=== PATIENT | male | born 1990 | race Caucasian/White ===

== ENCOUNTER 2020-11-03 23:30 | Emergency (ER) | payer OTHER, SELFPAY ==
--- NOTE | ~2020-11-03 | XR_ITS ---
EXAMINATION: XR HAND, RIGHT XR ANKLE, RIGHT CLINICAL INFORMATION: Right hand pain. Right ankle pain. COMPARISON: None TECHNIQUE: 3 views of the right hand. 3 views of the right ankle. FINDINGS: Right hand: No fracture or dislocation. There is soft tissue swelling of the third digit surrounding the proximal interphalangeal joint. No radiopaque foreign body. Right ankle: No fracture or dislocation. The ankle mortise is congruent. The soft tissues are unremarkable. No ankle joint effusion. XR/XR ankle RT min 3V IMPRESSION: 1. No fracture or malalignment of the right hand. Soft tissue swelling surrounds the third digit proximal interphalangeal joint. 2. No fracture or malalignment of the right ankle.
--- NOTE | ~2020-11-03 | XR_ITS ---
EXAMINATION: XR HAND, RIGHT XR ANKLE, RIGHT CLINICAL INFORMATION: Right hand pain. Right ankle pain. COMPARISON: None TECHNIQUE: 3 views of the right hand. 3 views of the right ankle. FINDINGS: Right hand: No fracture or dislocation. There is soft tissue swelling of the third digit surrounding the proximal interphalangeal joint. No radiopaque foreign body. Right ankle: No fracture or dislocation. The ankle mortise is congruent. The soft tissues are unremarkable. No ankle joint effusion. XR/XR hand RT min 3V IMPRESSION: 1. No fracture or malalignment of the right hand. Soft tissue swelling surrounds the third digit proximal interphalangeal joint. 2. No fracture or malalignment of the right ankle.
[2020-11-03 23:42] VITALS: BP 122/74; PULSE 88; RESP 18; TEMP 36.1; O2SAT 96; BMI 26.6
--- NOTE | 2020-11-04 00:29 | PC.NURSE ---
PT IS CONSTANTLY GETTING UP AND REQUESTING TO GO HOME.
--- NOTE | 2020-11-04 00:44 | PC.NURSE ---
RIGHT HAND IS UNDRESSED AND CLEANED UP. PT HAS SMALL CUTS TO TOP OF RIGHT HAND WITH SLIGHT ACTIVE BLEEDING TO AREA. PT TRYING TO CALL [facility] WITHOUT SUCCESS. PT IS CONSTANTLY TALKING AND TRYING TO GET UP AND WALK AROUND. PT TOLD SEVERAL TIMES TO STAY SITTING. WILL CONTINUE TO MONITOR PT.
--- NOTE | 2020-11-04 01:01 | PC.NURSE ---
PT RETURNS TO [facility] [place]. WILL CONTINUE TO MONITOR PT.
[2020-11-04 02:00] VITALS: BP 118/76; PULSE 81; RESP 16; O2SAT 98
--- NOTE | 2020-11-04 02:02 | ED.ALCOHOL ---
HPI - Alcohol General Chief Complaint: ETOH/Substance Use Stated Complaint: Etoh Time Seen by Provider: 11/04/20 00:58 Source: patient Mode of arrival: ambulatory History of Present Illness HPI narrative: 30-year-old male presents via EMS and noted to be intoxicated and was upset due to a break-up with his girlfriend and had punched a wall with his right hand. Patient states that he also kicked the wall and denies any difficulty with opening and closing his hand. Related Data Allergies Allergy/AdvReac Type Severity Reaction Status Date / Time No Known Allergies Allergy Unverified 12/08/19 16:45 Review of Systems Review of Systems: Pertinent positives and negatives as stated in HPI 10 point review systems is otherwise negative. [facility] Past Medical History Source: nursing notes reviewed Medical History No known health problems Social History Social History Advance Directives: No Advance Directives Information Provided: No Physical Exam Vital Signs: Vital Signs: Last Vital Signs Temp 97 F 11/03/20 23:42 Pulse 80 11/04/20 04:00 Resp 16 11/04/20 04:00 BP 120/78 11/04/20 04:00 Pulse Ox 98 11/04/20 04:00 Body Mass Index 26.6 VITAL SIGNS: Reviewed. GENERAL: Well developed, well nourished, in no acute distress. HEAD: Normocephalic/atraumatic EYES: PERRLA, EOMI OROPHARYNX: no oral lesions noted, posterior pharynx cleaR LUNGS: Normal breath sounds. No adventitious sounds or accessory muscle use. SpO2<96> CARDIOVASCULAR: Regular rate and rhythm without noted murmurs ABDOMEN: Soft, non-tender, non-distended with bowel sounds. 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 CAPILLARY REFILL LESS THAN 3 SECONDS NEUROLOGIC: Alert and oriented x 4. Course Course Course Narrative: 30-YEAR-OLD MALE WITH HISTORY AND CLINICAL PRESENTATION CONSISTENT WITH alcohol intoxication as well as abrasions to the right hand and on review of all x-rays there are no acute findings to support fracture or dislocation. BAL-153 and patient will be discharged at 6:00 a.m. after clinical evaluation for sobriety. On re-evaluation patient is clinically sober and stable for discharge to home. MDM - Alcohol Lab Data Labs: Lab Results 11/04/20 Range/Units 02:08 Ethyl Alcohol 153 mg/dL Discharge Plan Discharge Clinical Impression: Alcoholic intoxication, Alcohol dependence, Abrasion of hand, right Patient Disposition: Home, Self-Care Instructions: Alcohol Intoxication (ED), Abrasion (ED), Alcohol Dependence (ED) Additional Instructions: Follow-up with your primary care provider in the next 2-3 days for re-evaluation. Return to the ER for acute worsening of symptoms. Referrals: Physician,Unknown [Primary Care Provider] - 2 days
[2020-11-04 02:58] LABS: Ethanol 153 mg/dL
[2020-11-04 04:00] VITALS: BP 120/78; PULSE 80; RESP 16; O2SAT 98
--- NOTE | 2020-11-04 06:24 | PC.NURSE ---
[facility] IS CALLING [facility]. PT IN NAD AND REQUESTING TO LEAVE. PT AWAITING FOR D/C DISPO.
== END 2020-11-04 07:15 | disposition home or self-care (01) ==
PROVIDERS: Emergency Provider Student in an Organized Health Care Education/Training Program
DX: S60.511A Abrasion of right hand, initial encounter (principal); F10.229 Alcohol dependence with intoxication, unspecified; Y90.6 Blood alcohol level of 120-199 mg/100 ml; M25.571 Pain in right ankle and joints of right foot; M79.641 Pain in right hand; Y29.XXXA Contact with blunt object, undetermined intent, initial encounter; Y93.9 Activity, unspecified; Y92.9 Unspecified place or not applicable; Y99.9 Unspecified external cause status
CPT/HCPCS: 36415; 73130; 73610; 82077; 99283

== ENCOUNTER 2021-08-10 03:05 | Emergency (ER) | payer OTHER, SELFPAY ==
[2021-08-10 03:11] VITALS: BP 134/84; BP 142/96; PULSE 92; PULSE 98; RESP 18; O2SAT 97; O2SAT 99; BMI 25.0
--- NOTE | 2021-08-10 03:17 | ED.PSYCH ---
HPI - Psych General Chief Complaint: ETOH/Substance Use Stated Complaint: pcp Time Seen by Provider: 08/10/21 03:17 Source: patient Mode of arrival: EMS Limitations: other (drug use) History of Present Illness HPI Narrative: walking around [place] trying to find his BMX bike wants to have a baby with someone complaint: substance abuse Onset (ago): hour(s) Duration: constant History of same: Yes Relieving factors: none Exacerbating factors: drug use Context: recent drug abuse Associated psychiatric symptoms: none Associated symptoms: denies other symptoms Treatments prior to arrival: none Related Data Allergies Allergy/AdvReac Type Severity Reaction Status Date / Time No Known Allergies Allergy Unverified 12/08/19 16:45 Review of Systems Review of Systems: Constitutional : No Fever, No Chills ENT/Mouth : No Ear Pain, No Nasal Congestion, No sore throat Eyes: No Eye Pain, No Swelling, No Redness Cardiovascular : No Chest Pain, No SOB Respiratory : No Cough, No Sputum, No Dyspnea Gastrointestinal : No Nausea, No Vomiting, No Diarrhea, No Hematochezia, No Melena Genitourinary : No Dysuria, No Urinary Frequency, No Hematuria Musculoskeletal : No Myalgias Skin : No Skin Lesions, No rash Neuro : No Weakness, No Numbness, No Paresthesias, No Dizziness, No Headache Psych : no Anxiety, no Depression, no SI/HI Heme/Lymph: No Lymphadenopathy Endocrine : No Polyuria, No Polydipsia All other systems reviewed and are negative PMFSH Past Medical History Attestation statement: The following information was validated with the patient. Medical History No known health problems Social History Social History (Updated 08/10/21 @ 03:32 by Zakiya Jordan DO) Patient Tobacco Use Status: Current everyday Tobacco user Substance Use Type: Hallucinogens and Marijuana Advance Directives: No Advance Directives Information Provided: Yes Physical Exam Vital Signs: Vital Signs: Last Vital Signs Temp 97.9 F 08/10/21 05:49 Pulse 71 08/10/21 05:55 Resp 15 08/10/21 05:49 BP 93/48 L 08/10/21 05:49 Pulse Ox 96 08/10/21 05:55 BMI result Body Mass Index 25.0 Appearance: Alert. Oriented X3. No acute distress. Laughing Eyes: Pupils equal, round and reactive to light. 4mm ENT: Pharynx normal. Atraumatic Neck: Normal inspection. Neck supple. CVS: Normal heart rate and rhythm. Pulses normal. Respiratory: No respiratory distress. Breath sounds normal. Abdomen: Soft and non-tender. Skin: Skin warm and dry. Normal skin color. Normal skin turgor. Extremities: No lower extremity edema. Neuro: Oriented X 3. No motor deficit. No sensory deficit. Course Course Course Narrative: awake alert steady gait, GCS 15, does not want help with detox just wants to go home, plans to find his bike MDM - Psych MDM Narrative Medical decision making narrative: 31 yo male who drank ETOH tonight then did some PCP lost his BMX bike and was found wandering around - he is alert and oriented x 3, no SI, no signs of trauma VS stable. He is directable and making jokes with staff. At this time will observe until more clinically sober. Discharge Plan Discharge Clinical Impression: PCP abuse Patient Disposition: Home, Self-Care Instructions: Polysubstance Abuse (ED) Additional Instructions: return to ED for any worsening symptoms or concerns please stop doing drugs
[2021-08-10 05:49] VITALS: BP 93/48; PULSE 89; RESP 15; TEMP 36.6; O2SAT 97
[2021-08-10 05:55] VITALS: PULSE 71; O2SAT 96
[2021-08-10 06:33] VITALS: BP 98/62; PULSE 70; RESP 16; TEMP 36.6; O2SAT 97
== END 2021-08-10 06:50 | disposition home or self-care (01) ==
PROVIDERS: Emergency Provider Emergency Medicine; PCP Internal Medicine
DX: F16.121 Hallucinogen abuse with intoxication with delirium (principal); Z71.51 Drug abuse counseling and surveillance of drug abuser
CPT/HCPCS: 99282; 99284